=== PATIENT | male | born 1965 | race Caucasian/White ===

== ENCOUNTER → 2018-01-02 | Outpatient (REF) ==
[~2018-01-02] MED LIST: APIDRAVL SC; ASPIRIN 81M81 MG/TA2 PO; GLUCOPHAGE1000 MG PO; LANTUS100 U/ML SC; LIPITOR 40MG TA40 MG PO
== END ==
LOC: ZLAB.WCH 08:30
DX: Z01.89 Encounter for other specified special examinations (principal)

== ENCOUNTER 2020-01-31 12:28 | Inpatient (IN) | payer BC ==
[~2020-01-31] VITALS: Ht 195.6 cm; Wt 186.3 kg
[~2020-01-31 12:28] MED LIST changes: -GLUCOPHAGE1000 MG PO; +GLUCOPHAGE850 MG/TAB PO
[2020-01-31] MEDS ORDERED: NOVLOG SQ (13:40)
[2020-01-31] MEDS ORDERED: ELIQUIS 5MG PO (13:40)
[2020-01-31] MEDS ORDERED: HYDRODIURIL50 MG PO (13:41)
[2020-01-31] MEDS ORDERED: [UNRECOGNIZED DRUG - SUPPLY] SQ (13:42)
[2020-01-31 14:42] LABS: BASO % 0.4 % (0.0-2.0); EOS # 0.1 (0.0-0.7); EOS % 2.7 % (0-4.0); GRAN # 2.8 (1.4-6.5); GRAN % 57.8 % (42.2-75.2); HEMATOCRIT 41.7 % (42.0-52.0); HEMOGLOBIN 13.6 g/dl (13.5-18.0); INR 1.1 (0.8-3.0); LYMPH # 1.4 (1.2-3.4); LYMPH % 29.3 % (20.0-51.0); MEAN CELL VOLUME 88 fl (80.0-100.0); MEAN CORPUSCULAR HEMOGLOBIN 29 pg (27.0-31.0); MEAN CORPUSCULAR HGB CONC 33 g/dl (33.0-37.0); MEAN PLATELET VOLUME 10.2 fl (7.4-10.4); MONO # 0.5 (0.1-0.6); MONO % 9.4 % (1.7-9.3); PLATELET COUNT 161 K/mm3 (130-400); PROTHROMBIN TIME 12.7 SECONDS (9.7-12.8); RED BLOOD COUNT 4.76 M/mm3 (4.20-5.60); REDCELL DISTRIBUTION WIDTH-CV 15.4 % (11.5-14.5)
[2020-01-31 14:49] LABS: ALBUMIN 4.4 gm/dL (3.5-5.0); CALCIUM 9.5 mg/dL (8.4-10.2); POTASSIUM 4.7 mmol/L (3.4-5.0); TOTAL PROTEIN 7.6 gm/dL (6.4-8.2)
[2020-01-31 15:01] LABS: TROPONIN-I 0.025 ng/mL (0.000-0.035)
[2020-01-31] MEDS ORDERED: TRESIBA FL100 UNIT/1 SQ (16:36)
[2020-01-31] MEDS ORDERED: COZAAR100 MG PO (17:19)
[2020-01-31] MEDS ORDERED: ZOCOR 40MG40 MG PO (17:20)
[2020-01-31 17:26] VITALS: BP 159/85; PULSE 88; TEMP 97.9
[2020-01-31 17:28] VITALS: BP 159/85; PULSE 88; TEMP 97.9
[2020-01-31 19:36] VITALS: BP 152/96; PULSE 83; TEMP 97.9
--- NOTE | 2020-01-31 20:00 | NUR ---
Shift report received from OTILIA Gray. At time of assessment patient is sitting up in the chair. His respirations are even and unlabored and his heart sounds are normal and regular. He does not complain of any pain at this time and does not voice any other concerns. RT set him up for CPAP to be worn at night, as this is what he does at home. Patient does have some purple/brown discoloration bilateral lower extremities from venous insufficiency.
[2020-02-01] VITALS (17 sets, daily range): BP systolic 113–193; BP diastolic 56–100; PULSE 77–97; TEMP 97.5–98.1
--- NOTE | 2020-02-01 05:09 | NUR ---
Patient has had uneventful night and has slept throughout the night. He was placed on CPAP by RT, as he wears this normally at home. He has not had any complaints of pain, etc tonight.
[2020-02-01 07:44] LABS: BASO % 0.7 % (0.0-2.0); EOS # 0.1 (0.0-0.7); EOS % 2.5 % (0-4.0); GRAN # 2.6 (1.4-6.5); GRAN % 57.3 % (42.2-75.2); HEMATOCRIT 44.1 % (42.0-52.0); HEMOGLOBIN 14.3 g/dl (13.5-18.0); LYMPH # 1.4 (1.2-3.4); LYMPH % 30.3 % (20.0-51.0); MEAN CELL VOLUME 88 fl (80.0-100.0); MEAN CORPUSCULAR HEMOGLOBIN 29 pg (27.0-31.0); MEAN CORPUSCULAR HGB CONC 32 g/dl (33.0-37.0); MEAN PLATELET VOLUME 10.4 fl (7.4-10.4); MONO # 0.4 (0.1-0.6); PLATELET COUNT 161 K/mm3 (130-400); REDCELL DISTRIBUTION WIDTH-CV 15.6 % (11.5-14.5)
[2020-02-01 08:03] LABS: CALCIUM 9.3 mg/dL (8.4-10.2); CREATININE, serum 1.02 (0.66-1.25); POTASSIUM 4.3 mmol/L (3.4-5.0)
[2020-02-01 08:04] LABS: CHOLESTEROL RISK RATIO 4.7
--- NOTE | 2020-02-01 12:01 | NUR ---
First visit from the physical ther. No needs right now.
--- NOTE | 2020-02-01 15:49 | NUR ---
JERALD met with the patient and his , Ramya (ph#[phone]), to discuss discharge plan. The patient lives in [place] with his . He reports independence with ADLs and does not use any assistive devices. He does have a CPAP from [employer]. The patient's PCP is Dr. Kali Barr and he receives his medications at [facility]. He reports no difficulties obtaining his meds. The patient does not have advanced directives and he was not interested in completing them at this time. The patient plans to return home with his upon discharge. No additional needs at this time.
--- NOTE | 2020-02-01 21:11 | NUR ---
Sitting in recliner. Assessment complete. Lungs clear. Heart sounds normal. Bowels active x4. Pulses present. Bilateral lower leg edema +3. Bilateral lower leg discoloration with wound to left lateral leg with dressing in place. Sees wound care. Reports mild body aches from cardioversion. Would like tylenol. Denies other needs at this time. Call light in reach.
[2020-02-02] VITALS (7 sets, daily range): BP systolic 103–147; BP diastolic 52–80; PULSE 69–94; TEMP 97.6–98.9
--- NOTE | 2020-02-02 02:18 | NUR ---
Resting in bed. Call light in reach.
--- NOTE | 2020-02-02 06:30 | NUR ---
Patient had uneventful night. Resting in bed this AM. Call light in reach.
[2020-02-02 06:40] LABS: BASO % 0.5 % (0.0-2.0); EOS # 0.1 (0.0-0.7); EOS % 2.8 % (0-4.0); GRAN # 2.1 (1.4-6.5); GRAN % 54.3 % (42.2-75.2); HEMATOCRIT 42.2 % (42.0-52.0); HEMOGLOBIN 13.7 g/dl (13.5-18.0); LYMPH # 1.2 (1.2-3.4); LYMPH % 30.8 % (20.0-51.0); MEAN CELL VOLUME 89 fl (80.0-100.0); MEAN CORPUSCULAR HEMOGLOBIN 29 pg (27.0-31.0); MEAN CORPUSCULAR HGB CONC 33 g/dl (33.0-37.0); MEAN PLATELET VOLUME 10.5 fl (7.4-10.4); MONO # 0.4 (0.1-0.6); MONO % 11.3 % (1.7-9.3); PLATELET COUNT 154 K/mm3 (130-400); RED BLOOD COUNT 4.77 M/mm3 (4.20-5.60); REDCELL DISTRIBUTION WIDTH-CV 15.5 % (11.5-14.5)
[2020-02-02 06:54] LABS: CREATININE, serum 1.22 (0.66-1.25); MAGNESIUM 2.1 mg/dL (1.6-2.3); POTASSIUM 3.9 mmol/L (3.4-5.0)
--- NOTE | 2020-02-02 07:15 | NUR ---
awake resting in bed, bedside shift report received from OTILIA Priest
--- NOTE | 2020-02-02 07:22 | NUR ---
Report given to OTILIA Barnett
--- NOTE | 2020-02-02 09:10 | NUR ---
remains up in chair aftr having had breakfast, full assessment completed, see interventions for further info, denies pain or needs
--- NOTE | 2020-02-02 11:00 | NUR ---
resting in bed, will wait until aftr lunch to take a shower, instructed him just to call when he is ready and we will assist him
--- NOTE | 2020-02-02 12:40 | NUR ---
sitting up in chair eating lunch, denies needs
--- NOTE | 2020-02-02 13:30 | NUR ---
assisted up and into shower, is independent while in shower
--- NOTE | 2020-02-02 15:40 | NUR ---
up in chair and denies needs
--- NOTE | 2020-02-02 17:27 | NUR ---
sitting up in chair having supper
--- NOTE | 2020-02-02 18:40 | NUR ---
bedside shift report given to OTILIA Lynn
--- NOTE | 2020-02-03 02:12 | NUR ---
EKG DONE AND PRINT OUT OF EKG WAS PUT IN CHART AT 8610 TO SEE A COPY EKGS AREN'T SHOWING UP ON [facility] AT THIS TIME
--- NOTE | 2020-02-03 03:10 | NUR ---
patient has rested through out the night. denied any pain for this nurse. will be sotalol day 3. patient walks up and down the pediatric hallway when awake. awaiting for the morning EKG to see the QTc. will report to day shift upon their arrival this morning about the patient.
[2020-02-03 04:17] VITALS: BP 106/53; PULSE 54; TEMP 97.6
[2020-02-03 06:24] LABS: BASO % 0.6 % (0.0-2.0); EOS # 0.1 (0.0-0.7); EOS % 2.7 % (0-4.0); GRAN # 2.3 (1.4-6.5); GRAN % 48.7 % (42.2-75.2); HEMOGLOBIN 13.8 g/dl (13.5-18.0); LYMPH # 1.8 (1.2-3.4); LYMPH % 36.9 % (20.0-51.0); MEAN CELL VOLUME 88 fl (80.0-100.0); MEAN CORPUSCULAR HEMOGLOBIN 29 pg (27.0-31.0); MEAN CORPUSCULAR HGB CONC 33 g/dl (33.0-37.0); MEAN PLATELET VOLUME 10.5 fl (7.4-10.4); MONO # 0.5 (0.1-0.6); MONO % 10.9 % (1.7-9.3); PLATELET COUNT 150 K/mm3 (130-400); RED BLOOD COUNT 4.79 M/mm3 (4.20-5.60); REDCELL DISTRIBUTION WIDTH-CV 15.3 % (11.5-14.5)
[2020-02-03 06:37] LABS: CALCIUM 9.2 mg/dL (8.4-10.2); CREATININE, serum 1.65 (0.66-1.25); MAGNESIUM 2.1 mg/dL (1.6-2.3); POTASSIUM 3.9 mmol/L (3.4-5.0)
[2020-02-03 07:26] VITALS: BP 134/82; PULSE 74; TEMP 97.7
[2020-02-03] MEDS ORDERED: NITROSTAT0.4 MG/TAB SL (10:02)
[2020-02-03] MEDS ORDERED: ASPIRIN E.C. 8181 MG PO (10:02)
[2020-02-03] MEDS ORDERED: BETAPACE 80MG80 MG PO (10:02)
[2020-02-03 11:14] VITALS: BP 129/60; PULSE 79; TEMP 98
[2020-02-03 16:09] VITALS: BP 122/64; PULSE 76; TEMP 98.5
--- NOTE | 2020-02-03 19:18 | NUR ---
PT WILL DISCHARGE TONIGHT AFTER EKG AT 2100. REPORT GIVEN TO OTILIA ROSALES.
--- NOTE | 2020-02-03 20:27 | NUR ---
ASSESSMENT COMPLETE. UP IN CHAIR. PREPARING FOR DISCHARGE PLANNED FOR THIS EVENING. DENIES NEEDS AT THIS TIME.
[2020-02-03 20:30] VITALS: BP 130/89; PULSE 81; TEMP 99
== END 2020-02-03 22:35 | disposition home or self-care (01) | DRG 308 ==
LOC: COL.ER 12:28 → MEDICAL 15:23
PROVIDERS: Emergency Medicine; Physician Assistant; ADMIT Hospitalist
PROC: 5A2204Z Restoration of Cardiac Rhythm, Single (ICD-10-PCS; principal; 2020-02-01)
DX: I48.91 Unspecified atrial fibrillation (principal); I50.33 Acute on chronic diastolic (congestive) heart failure; N17.9 Acute kidney failure, unspecified; L97.929 Non-pressure chronic ulcer of unspecified part of left lower leg with unspecified severity; Z68.42 Body mass index [BMI] 45.0-49.9, adult; I11.0 Hypertensive heart disease with heart failure; R07.89 Other chest pain; I44.1 Atrioventricular block, second degree; E11.9 Type 2 diabetes mellitus without complications; E78.5 Hyperlipidemia, unspecified; G47.33 Obstructive sleep apnea (adult) (pediatric); E66.01 Morbid (severe) obesity due to excess calories
CPT/HCPCS: 99231-AI; 99232-AI; 99239; A9500; G0378; J1815; J2704; J2785

== ENCOUNTER → 2021-04-04 | Outpatient (CLI) | payer BC ==
[~2021-04-04] MED LIST changes: +ALDACTONE 25MG25 M1 PO; +ASPIRIN E.C. 8181 MG PO; +BETAPACE 80MG80 MG PO; +COZAAR100 MG PO; +ELIQUIS 5MG PO; +HCTZ 25MG TAB25 MG PO; +HYDRODIURIL50 MG PO; +NITROSTAT0.4 MG/TAB SL; +NOVLOG SQ; +NOVOLOG 100U100 U/M1 SQ; +TRESIBA FL100 UNIT/1 SQ; +TRESIBA100 UNIT/1 SQ; +TRULICITY1.5 MG/0.5 SQ; +TYLENOL 500MG500 MG PO; +XALATAN EYE DROPS OD; +ZOCOR 40MG40 MG PO; +[UNRECOGNIZED DRUG - SUPPLY] SQ
== END ==
LOC: ZCOL.LAB 16:11
DX: L03.119 Cellulitis of unspecified part of limb (principal)

== ENCOUNTER 2021-06-12 09:33 | Emergency (ER) | payer BC ==
[~2021-06-12] VITALS: Ht 195.6 cm; Wt 181.8 kg
[~2021-06-12 09:33] MED LIST changes: -ALDACTONE 25MG25 M1 PO; -HCTZ 25MG TAB25 MG PO; -NOVOLOG 100U100 U/M1 SQ; -TRESIBA100 UNIT/1 SQ; -TRULICITY1.5 MG/0.5 SQ; -TYLENOL 500MG500 MG PO; -XALATAN EYE DROPS OD
[2021-06-12 09:35] VITALS: TEMP 97.8
[2021-06-12 10:14] LABS: BASO # 0.1 (0.0-0.2); BASO % 0.8 % (0.0-2.0); EOS # 0.3 (0.0-0.7); EOS % 4.6 % (0-4.0); GRAN # 3.5 (1.4-6.5); GRAN % 56.7 % (42.2-75.2); HEMATOCRIT 40.2 % (42.0-52.0); HEMOGLOBIN 13.2 g/dl (13.5-18.0); LYMPH # 1.6 (1.2-3.4); LYMPH % 25.9 % (20.0-51.0); MEAN CELL VOLUME 90 fl (80.0-100.0); MEAN CORPUSCULAR HEMOGLOBIN 30 pg (27.0-31.0); MEAN CORPUSCULAR HGB CONC 33 g/dl (33.0-37.0); MEAN PLATELET VOLUME 10.8 fl (7.4-10.4); MONO # 0.7 (0.1-0.6); MONO % 11.3 % (1.7-9.3); PLATELET COUNT 195 K/mm3 (130-400); RED BLOOD COUNT 4.45 M/mm3 (4.20-5.60)
[2021-06-12 10:22] LABS: ALBUMIN 3.9 gm/dL (3.5-5.0); BILIRUBIN,TOTAL 0.7 mg/dL (0.0-1.0); CALCIUM 9.3 mg/dL (8.4-10.2); CREATININE, serum 1.2 (0.66-1.25); POTASSIUM 4.9 mmol/L (3.4-5.0); TOTAL PROTEIN 7.2 gm/dL (6.4-8.2)
[2021-06-12 10:35] LABS: TROPONIN-I 0.016 ng/mL (0.000-0.035)
[2021-06-12 13:54] VITALS: BP 114/55; PULSE 62
== END 2021-06-12 13:54 | disposition home or self-care (01) ==
LOC: COL.ER 09:33
PROVIDERS: Personal Emergency Response Attendant
DX: R07.9 Chest pain, unspecified (principal); I48.91 Unspecified atrial fibrillation; E11.9 Type 2 diabetes mellitus without complications; Z79.82 Long term (current) use of aspirin; Z79.01 Long term (current) use of anticoagulants; Z79.4 Long term (current) use of insulin
CPT/HCPCS: J2270; J2405

== ENCOUNTER 2021-06-20 06:31 | Day surgery (SDC) | payer BC ==
[2021-06-20] VITALS (7 sets, daily range): BP systolic 109–171; BP diastolic 64–94; PULSE 61–79; TEMP 97.4
[~2021-06-20] VITALS: Ht 195.8 cm; Wt 188.2 kg
[2021-06-20 07:29] LABS: HEMATOCRIT 38.8 % (42.0-52.0); HEMOGLOBIN 12.7 g/dl (13.5-18.0); MEAN CELL VOLUME 90 fl (80.0-100.0); MEAN CORPUSCULAR HEMOGLOBIN 30 pg (27.0-31.0); MEAN CORPUSCULAR HGB CONC 33 g/dl (33.0-37.0); MEAN PLATELET VOLUME 10.2 fl (7.4-10.4); PLATELET COUNT 140 K/mm3 (130-400); RED BLOOD COUNT 4.31 M/mm3 (4.20-5.60); REDCELL DISTRIBUTION WIDTH-CV 14.6 % (11.5-14.5)
[2021-06-20 07:37] LABS: INR 1.1 (0.8-3.0); PROTHROMBIN TIME 11.9 SECONDS (9.7-12.8)
[2021-06-20 07:39] LABS: CREATININE, serum 1.15 (0.66-1.25); PARTIAL THROMBOPLASTIN TIME 27.8 SECONDS (26.0-37.0); POTASSIUM 4.5 mmol/L (3.4-5.0)
[2021-06-20] MEDS ORDERED: NITROSTAT0.4 MG/TAB SL (08:50)
[2021-06-20] MEDS ORDERED: NOVOLOG 100U100 U/M1 SQ (08:51)
[2021-06-20] MEDS ORDERED: BETAPACE 80MG80 MG PO (09:34)
[2021-06-20] MEDS ORDERED: TRESIBA100 UNIT/1 SQ (09:35)
[2021-06-20] MEDS ORDERED: ALDACTONE 25MG25 M1 PO (09:35)
[2021-06-20] MEDS ORDERED: TYLENOL 500MG500 MG PO (09:36)
[2021-06-20] MEDS ORDERED: ELIQUIS 5MG PO (09:37)
[2021-06-20] MEDS ORDERED: TRULICITY1.5 MG/0.5 SQ (09:37)
[2021-06-20] MEDS ORDERED: HCTZ 25MG TAB25 MG PO (09:38)
[2021-06-20] MEDS ORDERED: COZAAR100 MG PO (09:39)
[2021-06-20] MEDS ORDERED: XALATAN EYE DROPS OD (09:39)
--- NOTE | 2021-06-20 10:18 | NUR ---
SEE MERGE DOCUMENTATION FOR MEDICATION ADMINISTRATION AND INTRA/POST PROCEDURE SEDATION ASSESSMENTS.
[2021-06-21 11:30] VITALS: BP 126/70; PULSE 75
[2021-06-21 12:15] VITALS: BP 180/88; PULSE 64
[2021-06-21 13:15] VITALS: BP 112/66; PULSE 68
== END 2021-06-20 16:56 ==
LOC: COL.CAR 06:31
PROVIDERS: Internal Medicine Cardiovascular Disease
DX: I25.110 Atherosclerotic heart disease of native coronary artery with unstable angina pectoris (principal); I48.0 Paroxysmal atrial fibrillation; E11.9 Type 2 diabetes mellitus without complications; I10 Essential (primary) hypertension; E78.2 Mixed hyperlipidemia; Z79.01 Long term (current) use of anticoagulants; Z79.4 Long term (current) use of insulin; Z79.899 Other long term (current) drug therapy; Z87.891 Personal history of nicotine dependence; Z20.822 Contact with and (suspected) exposure to COVID-19; Z82.3 Family history of stroke
CPT/HCPCS: C1769; J1644; J2250; J3010